=== PATIENT | female | born 1990 | race African-American/Black ===

== ENCOUNTER 2017-10-17 04:46 | Emergency (ER) | payer SELFPAY ==
[2017-10-17] MEDS ORDERED: HYDROcodone/Acetaminophen 10/325 mg Tablet ONE (06:05)
--- NOTE | 2017-10-17 08:05 | CT ---
PRELIMINARY REPORT/[facility]/EMERGENCY AFTER HOURS PROCEDURE: EXAM: CT Abdomen and Pelvis Without Intravenous Contrast CLINICAL HISTORY: 27 years old, female; Pain; Abdominal pain; Generalized; Patient HX: R/O stone TECHNIQUE: Axial computed tomography images of the abdomen and pelvis without intravenous contrast. Coronal reformatted images were created and reviewed. COMPARISON: No relevant prior studies available. FINDINGS: Lower thorax: No acute findings. ABDOMEN: Liver: No acute findings. Gallbladder and bile ducts: No acute findings. No calcified stones. No ductal dilation. Pancreas: No acute findings. No ductal dilation. Spleen: No acute findings. No splenomegaly. Adrenals: No acute findings. No mass. Kidneys and ureters: Multiple coarse calicifications interpolar left kidney consistent with probable stones, largest measuring 7 mm. These calcifications surround a rounded, 2.6 x 2.4 cm low attenuation structure which may reflect a parapelvic cyst although a focally dilated calyx is not excluded. Ther e is mild left perinephric fluid stranding. Right sided is unremarkable. Stomach and bowel: No acute findings. No obstruction. No mucosal thickening. Appendix: No findings to suggest acute appendicitis. PELVIS: Bladder: No acute findings. No stones. Reproductive: Unremarkable as visualized. ABDOMEN and PELVIS: Intraperitoneal space: No acute findings. No free air. No significant fluid collection. Bones/joints: No acute fracture. No dislocation. Soft tissues: No acute findings. Vasculature: No acute findings. No abdominal aortic aneurysm. Lymph nodes: Nonspecific increased number of left para-aortic nodes, largest measuring 1.3 cm in shor t axis. IMPRESSION: Left perinephric fluid stranding, nonspecific, may be related to recent stone passage vs pyelonephrit is. Left renal stones. Low attenuation structure left kidney may reflect a parapelvic cyst although a focally dilated calyx is not excluded. Nonspecific left para-aortic adenopathy. Additional images post IV contrast, to include delayed images, are advised. Thank you for allowing us to participate in the care of your patient. Dictated and Authenticated by: Jermaine Rothman MD 10/17/2017 6:01 AM Central Time ([place] & [place]) FINAL REPORT CT ABDOMEN AND PELVIS WITHOUT CONTRAST: I agree with the preliminary report given by Dr. Jermaine Rothman of [facility]. POS: OFF
== END 2017-10-17 06:52 | disposition home or self-care (01) ==
LOC: ERS 04:46
DX: N12 Tubulo-interstitial nephritis, not specified as acute or chronic (principal); J45.909 Unspecified asthma, uncomplicated; Z79.899 Other long term (current) drug therapy
CPT/HCPCS: 74176; 96374; J0696

== ENCOUNTER 2020-09-22 00:05 | Emergency (ER) | payer SELFPAY ==
[2020-09-22 00:51] LABS: #Basophils 0.1 thou/uL (0.0-0.2); #Eosinphils 0.1 thou/uL (0.0-0.7); #Lymphocytes 2.1 thou/uL (1.20-3.40); #Monocytes 0.5 thou/uL (0.11-0.59); #Neutrophils 4.3 thou/uL (1.40-6.50); %Basophils 0.8 % (0.0-1.0); %Eosinophils 1.9 % (0.0-10.0); %Lymphocytes 30.2 % (21.0-51.0); %Monocytes 6.5 % (0.0-10.0); %Neutrophils 60.7 % (42.0-75.0); Hemoglobin 11.2 g/dL (12.0-16.0); Mean Corpuscular Hemoglobin 28.3 pg (27.0-31.0); Mean Corpuscular Volume 85.8 fL (78.0-98.0); Mean Platelet Volume 10.2 fL (7.4-10.4); Platelet Count 202 thou/uL (130-400); RBC Distribution Width 13.9 % (11.5-14.5); Red Blood Cell (RBC) Count 3.95 mill/uL (4.20-5.40)
[2020-09-22 01:14] LABS: ALT (SGPT) 10 U/L (8-55); AST (SGOT) 10 U/L (5-34); Albumin 3.3 g/dL (3.5-5.0); Alkaline Phosphatase 53 U/L (40-110); Anion Gap 13 mmol/L (10-20); BUN (Urea Nitrogen) 16 mg/dL (7.0-18.7); Bilirubin, Total 0.2 mg/dL (0.2-1.2); CK (CPK) 148 U/L (29-168); Calc. Creatinine Clearance 0 mL/min (70-130); Carbon Dioxide 21 mmol/L (22-29); Chloride 103 mmol/L (98-107); Globulin 3.6 g/dL (2.4-3.5); Glucose 110 mg/dL (70-105); Potassium 3.3 mmol/L (3.5-5.1); Protein, Total 6.9 g/dL (6.0-8.3); Sodium 134 mmol/L (136-145)
[2020-09-22 01:15] LABS: Acetaminophen Less than 6.0 mcg/mL (10.0-30.0); Alcohol Less than 10 mg/dL (Less than 10); Salicylate Less than 8.0 mg/dL (15.0-30.0)
[2020-09-22 01:22] LABS: BHCG - Serum POSITIVE (NEGATIVE); Pregs Control Background? CLEAR/WHITE (CLR/WHITE); Pregs Control Bar Appear? YES (CONTROL BAR)
[2020-09-22 01:31] LABS: Thyroid Stimulating Hormone 1.3099 uIU/mL (0.35-4.94)
[2020-09-22 02:08] LABS: Acetaminophen Less than 6.0 mcg/mL (10.0-30.0)
[2020-09-22 03:42] LABS: Bilirubin Negative (Negative); Blood, Urine Negative (Negative); Clarity Clear (Clear); Glucose, Urine (Dipstick) Normal (Negative); Ketone, Urine Negative (Negative); Leukocyte Negative Leu/uL (Negative); Nitrite Negative (Negative); Protein, Urine (Dipstick) Negative (Neg-Trace); Specific Gravity, Urine 1.016 (1.002-1.036); Urobilinogen Normal mg/dL (Less than 2); pH, Urine 6.5 (5.0-9.0)
[2020-09-22 04:00] LABS: Medtox Reader # READER 1; Opiate Screen Detected (NotDetected)
[2020-09-22 04:01] LABS: Amphetamine Not Detected (NotDetected); Barbiturates Screen Not Detected (NotDetected); Benzodiazepine Screen Not Detected (NotDetected); Cocaine Metabolite Screen Not Detected (NotDetected); Medtox Control Line Valid? VALID (VALID); Methadone Not Detected (NotDetected); Methamphetamine Not Detected (NotDetected); Oxycodone Screen Not Detected (NotDetected); Phencyclidine (PCP) Not Detected (NotDetected); THC/Cannabinoid Screen Not Detected (NotDetected); Tricyclic Screen Not Detected (NotDetected)
== END 2020-09-22 06:32 | disposition home or self-care (01) ==
LOC: ERS 00:05
DX: F43.9 Reaction to severe stress, unspecified (principal); T39.1X5A Adverse effect of 4-Aminophenol derivatives, initial encounter; J45.909 Unspecified asthma, uncomplicated
CPT/HCPCS: 36415; 80053; 80306; 80307; 81003; 82550; 84443; 84702; 84703; 85025; 93005

== ENCOUNTER 2022-06-26 22:26 | Emergency (ER) | payer OTHER | END 2022-06-27 01:29 | disposition home or self-care (01) | LOC: ERS 22:26 | DX: O21.9 Vomiting of pregnancy, unspecified (principal); Z3A.16 16 weeks gestation of pregnancy | CPT/HCPCS: 99283 ==

== ENCOUNTER 2022-07-02 22:56 | Emergency (ER) | payer OTHER ==
[2022-07-03 00:48] LABS: Bilirubin Negative (Negative); Blood, Urine Negative (Negative); Clarity Clear (Clear); Glucose, Urine (Dipstick) Normal (Negative); Ketone, Urine Negative (Negative); Leukocyte Negative Leu/uL (Negative); Nitrite Negative (Negative); Protein, Urine (Dipstick) 20 mg/dL (Neg-Trace); Specific Gravity, Urine 1.029 (1.002-1.036); Urobilinogen 6 mg/dL (Less than 2); pH, Urine 6.5 (5.0-9.0)
[2022-07-03 00:49] LABS: Pregnancy Test - Urine (BHCG) POSITIVE (Negative); Pregu Control Background? CLEAR/WHITE (CLR/WHITE); Pregu Control Bar Appear? YES (CONTROL BAR)
[2022-07-03 00:50] LABS: Specific Gravity 1.029 (1.002-1.036)
[2022-07-03] MEDS ORDERED: Ondansetron ODT 4 MG TAB ONE ×2 (01:05→01:09)
== END 2022-07-03 01:58 | disposition home or self-care (01) ==
LOC: ERS 22:56
DX: O21.9 Vomiting of pregnancy, unspecified (principal); O99.891 Other specified diseases and conditions complicating pregnancy; R09.81 Nasal congestion; Z3A.18 18 weeks gestation of pregnancy
CPT/HCPCS: 36416; 81003; 81025; 99284; Q0162

== ENCOUNTER 2023-01-22 09:10 | Emergency (ER) | payer OTHER ==
[2023-01-22 09:37] LABS: #Basophils 0.1 thou/uL (0.0-0.2); #Eosinphils 0.2 thou/uL (0.0-0.7); #Lymphocytes 1.9 thou/uL (1.20-3.40); #Monocytes 0.3 thou/uL (0.11-0.59); #Neutrophils 2.1 thou/uL (1.40-6.50); %Basophils 1.1 % (0.0-1.0); %Eosinophils 3.6 % (0.0-10.0); %Lymphocytes 41.3 % (21.0-51.0); Hemoglobin 10.6 g/dL (12.0-16.0); Mean Corpuscular HGB CONC 31.9 g/dL (32.0-36.0); Mean Corpuscular Hemoglobin 26.1 pg (27.0-31.0); Mean Corpuscular Volume 81.8 fl (78.0-98.0); Mean Platelet Volume 11.3 fL (7.4-10.4); Platelet Count 236 10x3/uL (130-400); Red Blood Cell (RBC) Count 4.08 mill/uL (4.20-5.40); White Blood Cell (WBC) Count 4.5 10x3/uL (4.8-10.8)
[2023-01-22 09:58] LABS: ALT (SGPT) 33 U/L (8-55); AST (SGOT) 23 U/L (5-34); Albumin 3.8 g/dL (3.5-5.0); Alkaline Phosphatase 64 U/L (40-110); Anion Gap 12 mmol/L (10-20); BUN (Urea Nitrogen) 16 mg/dL (7.0-18.7); Bilirubin, Total 0.3 mg/dL (0.2-1.2); Calc. Creatinine Clearance 0 mL/min (70-130); Carbon Dioxide 21 mmol/L (22-29); Chloride 107 mmol/L (98-107); Estimated GFR 94; Globulin 3.7 g/dL (2.4-3.5); Glucose 92 mg/dL (70-105); Lipase 14 U/L (8-78); Protein, Total 7.5 g/dL (6.0-8.3); Sodium 136 mmol/L (136-145)
[2023-01-22 10:25] LABS: Bilirubin Negative (Negative); Blood, Urine Negative (Negative); Clarity Clear (Clear); Glucose, Urine (Dipstick) Normal (Negative); Ketone, Urine Negative (Negative); Leukocyte Negative Leu/uL (Negative); Nitrite Negative (Negative); Protein, Urine (Dipstick) Negative (Neg-Trace); Specific Gravity, Urine 1.023 (1.002-1.036); Urobilinogen Normal mg/dL (Less than 2)
[2023-01-22] MEDS ORDERED: Ondansetron PF 4 MG/2 ML Vial ONE (10:25)
[2023-01-22] MEDS ORDERED: Dicyclomine 20 MG TAB ONE (10:25)
[2023-01-22 10:27] LABS: Pregnancy Test - Urine (BHCG) Negative (Negative); Pregu Control Background? CLEAR/WHITE (CLR/WHITE); Pregu Control Bar Appear? YES (CONTROL BAR); Specific Gravity 1.023 (1.002-1.036)
== END 2023-01-22 11:25 | disposition home or self-care (01) ==
LOC: ERS 09:10
DX: R19.7 Diarrhea, unspecified (principal); R10.84 Generalized abdominal pain; D72.819 Decreased white blood cell count, unspecified
CPT/HCPCS: 36415; 80053; 81003; 81025; 83690; 85025; 99284; J2405

== ENCOUNTER 2023-02-23 18:35 | Emergency (ER) | payer OTHER ==
[2023-02-23] MEDS ORDERED: Acetaminophen 500 MG TAB ONE (18:52)
[2023-02-23] MEDS ORDERED: Metoclopramide HCl 10 MG TAB ONE (19:52)
[2023-02-23] MEDS ORDERED: diphenhydrAMINE 25 MG CAP ONE (19:52)
[2023-02-23] MEDS ORDERED: Dexamethasone 10 MG/ML VIAL ONE (19:52)
[2023-02-23 19:59] LABS: Pregnancy Test - Urine (BHCG) Negative (Negative); Pregu Control Background? CLEAR/WHITE (CLR/WHITE); Pregu Control Bar Appear? YES (CONTROL BAR); Specific Gravity 1.044 (1.002-1.036)
[2023-02-23 20:02] LABS: Bacteria/HPF 3+ HPF (None Seen); Bilirubin Negative (Negative); Blood, Urine 2+ (Negative); Clarity Turbid (Clear); Glucose, Urine (Dipstick) Normal (Negative); Ketone, Urine Trace mg/dL (Negative); Leukocyte 250 Leu/uL (Negative); Mucous/LPF Rare LPF (<2+); Nitrite Negative (Negative); Protein, Urine (Dipstick) 100 mg/dL (Neg-Trace); Specific Gravity, Urine 1.044 (1.002-1.036); Squamous Epithelial 21-50 HPF (0-3); Urobilinogen 12 mg/dL (Less than 2); WBC/HPF 21-50 HPF (0-3)
[2023-02-23 20:28] LABS: SARS-CoV-2 NAA Rapid Test Not Detected (NotDetected)
== END 2023-02-23 21:33 | disposition home or self-care (01) ==
LOC: ERS 18:35
DX: J02.9 Acute pharyngitis, unspecified (principal); N39.0 Urinary tract infection, site not specified; Z20.822 Contact with and (suspected) exposure to COVID-19
CPT/HCPCS: 81003; 81015; 81025; 87081; 87430; 99284; J1100